=== PATIENT | male | born 1965 | race Caucasian/White ===

== ENCOUNTER 2020-05-14 07:38 | Day surgery (SDC) | payer OTHER ==
--- OUTSIDE RECORDS SUMMARY | 2020-05-14 07:41 | XMS REPORT ---
:1965 Author Organization [facility] Address [address] [place], [address] [place] [address] Care Team Providers Name Role Phone Chandler Oliver Unavailable [phone] PROBLEMS Type Condition ICD9-CM [id number] Onset Condition SNOMED Code Notes Code Code Dates Status Problem Mixed E78.2 Active 198694019 hyperlipidemia ALLERGIES No Known Allergies ENCOUNTERS from 1965 to 2020-04-03 Encounter Location Date Provider Diagnosis [facility] [address] [facility] [address] [place], [facility] [address] [facility] [place] [id number] in adult Z00.0 0 and Screening for c olon cancer Z12.11 IMMUNIZATIONS Vaccine Route Administration Date Status Flucelvax - single dose syringe Unknown Mar 01, 2020 Administered SOCIAL HISTORY Tobacco Use: Social History Observation Description Date Details (start date - stop date) Never Smoker Sex Assigned At : Social History Observation Description Sex Assigned At Unknown Alcohol Screen Question Answer Notes Did you have a drink containing alcohol in the past Yes year? Points 1 Interpretation Negative How often did you have a drink containing alcohol in Monthly or less (1 point) the past year? Tobacco Use/Smoking Question Answer Notes Are you a never smoker REASON FOR REFERRAL No Information VITAL SIGNS Height 73 in Mar, Weight 196.5 lbs Mar, Temperature 97.3 degrees Fahrenheit Mar, BMI 25.92 kg/m2 Mar, Oximetry 99 % Mar, Respiratory Rate 16 /min Mar, Blood pressure systolic 129 mm Hg Mar, Blood pressure diastolic 80 mm Hg Mar, MEDICATIONS No Information PROCEDURES No Information RESULTS No Results REASON FOR VISIT Wellness MEDICAL (GENERAL) HISTORY Type Description Date Surgical History Gallbladder-pain 2017 Goals Section No Information Health Concerns No Information MEDICAL EQUIPMENT No Information MENTAL STATUS No Information FUNCTIONAL STATUS No Information ASSESSMENTS Encounter Date Diagnosis Assessment Notes Treatment Notes Treatm ent Clinical Notes Mar, Encounter for -- Wellness Exam wellness performed without examination in /Rectal adult (ICD-10 - examination Z00.00) (Asymptomatic) at this time. -- Encourage regular exercise and healthy diet. -- Take a baby aspirin daily: N/A. -- Consider having a flu vaccine every February or March. -- A complete exam is suggested yearly. -- Reminder to always use seat belts. -- It is suggested that lipids (fat and cholesterol) be checked on a yearly basis. The goal here would be to keep the bad cholesterol level (LDL) below 100. -- For colorectal cancer screening, return 1 stool hemoccult cards (test for hidden blood). The [place] [employer] also suggests colonoscopy at age 50 and then every 10 years. If interested in this test, we can refer you to a surgeon or c4 planner. -- It is a good idea to periodically check the scrotum/testis for any new lumps or changes. -- It is a good idea to have a complete eye exam a minimum of every 3 years. Increased eye pressure is called glaucoma and it is a common cause of blindness. -- Encouraged on making dental appointment every 6-12 months for check-up -- Every 10 years, it is patel to have a tuberculosis skin test (PPD) and D-Tetanus. -- Avoid excessive sun exposure. -- Apply sunscreen when outside. Check skin for any abnormal lesions/moles. Mar, Screening for colon cancer (ICD-10 - Z12.11) Mar, Other -- Medication reviewed and updated. -- Dietary and Lifestyle modifications addressed regarding diet, exercise and weight managemen t. -- Treatment options, risks and benefits, side effects reviewed in detail. -- Advised on signs/symptoms to monitor and when to call clinic and/or visit the nearest ER. Patient verbalized understanding and agreeable with plan. PLAN OF TREATMENT Treatment Notes Assessment Notes Clinical Notes Encounter for wellness examination -- Wellness Exam performe d without in adult /Rectal examination (Asymptomatic) at this time. -- Encourage regular exercise and healthy diet. -- Take a baby aspirin daily: N/A. -- Consider having a flu vaccine every February or March. -- A complete exam is suggested yearly. -- Reminder to always use seat belts. -- It is suggested that lipids (fat and cholesterol) be checked on a yearly basis. The goal here would be to keep the bad cholesterol level (LDL) below 100. -- For colorectal cancer screening, return 1 stool hemoccult cards (test for hidden blood). The [place] [employer] also suggests colonoscopy at age 50 and then every 10 years. If interested in this test, we can refer you to a surgeon or c4 planner. -- It is a good idea to periodically check the scrotum/testis for any new lumps or changes. -- It is a good idea to have a complete eye exam a minimum of every 3 years. Increased eye pressure is called glaucoma and it is a common cause of blindness. -- Encouraged on making dental appointment every 6-12 months for check-up -- Every 10 years, it is patel to have a tuberculosis skin test (PPD) and D-Tetanus. -- Avoid excessive sun exposure. -- Apply sunscreen when outside. Check skin for any abnormal lesions/moles. Treatment Notes Test Name Order Date Lipid Panel With LDL/HDL Ratio 2020-04-03 UA/M w/rflx Culture, Comp 2020-04-03 Prostate-Specific Ag, Serum 2020-04-03 Hemoglobin A1c 2020-04-03 Comp. 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
--- OUTSIDE RECORDS SUMMARY | 2020-05-14 07:41 | XMS REPORT | Continuity of Care Document ---
:1965 Author Organization [facility] t Address [address] [place] [address] Care Team Providers Name Role Phone Unavailable Unavailable Unavailable Problems This patient has no known problems. Allergies, Adverse Reactions, Alerts This patient has no known allergies or adverse reactions. Medications This patient has no known medications. Procedures This patient has no known procedures. Encounters Start End Encounter Admission Attending Care Care Encounter Source Date/Time Date/Time Type Type Clinicians Facility Department ID 2020-04-23 2020-04-23 Outpatient [facility] [id number] [facility]00 [facility] Out[facility] Clin[facility] 2020-04-03 2020-04-03 Outpatient [facility] [id number] [facility] Outpat[facility] ent Clinics 2019-05-03 2019-05-03 Outpatient Brazlea Albat [id number] [facility] [address] 16:00:00 16:00:00 [facility] Family Medicine Medicine Outpati ent Clinics Results This patient has no known results.
--- OUTSIDE RECORDS SUMMARY | 2020-05-14 07:41 | XMS REPORT ---
:1965 Author Organization [facility] Address [address] [place], [address] [place] [address] Care Team Providers Name Role Phone Chandler Oliver Unavailable [phone] PROBLEMS Type Condition ICD9-CM [id number] Onset Condition SNOMED Code Notes Code Code Dates Status Problem Mixed E78.2 Active [id number] hyperlipidemia ALLERGIES No Known Allergies ENCOUNTERS from 1965 to 2020-04-23 Encounter Location Date Provider Diagnosis [facility] [address] Apr, Chandler Oliver Mixed hyp erlipidemia [address] [place], E78.2 and [facility] [id number] tongue K14.1 IMMUNIZATIONS Vaccine Route Administration Date Status Flucelvax [...] No Information VITAL SIGNS Height 73 in Apr, Weight 191.5 lbs Apr, Temperature 96.5 degrees Fahrenheit Apr, BMI 25.26 kg/m2 Apr, MEDICATIONS No Information PROCEDURES No Information RESULTS No Results REASON FOR VISIT 3 wk lab f/u MEDICAL (GENERAL) HISTORY Type Description Date Surgical History Gallbladder-pain 2017 Goals Section No Information Health Concerns No Information MEDICAL EQUIPMENT No Information MENTAL STATUS No Information FUNCTIONAL STATUS No Information ASSESSMENTS Encounter Date Diagnosis Assessment Notes Treatment Notes Treatm ent Clinical Notes Apr, Mixed hyperlipidemia Diet controlled. (ICD-10 - E78.2) Education given. Repeat in 1 year. Hyperlipidemia Education: Hyperlipidemia refers to increased levels of lipids(fats) in the blood, including cholesterol and triglycerides. This can significantly increase your risk of developing coronary artery disease and peripheral artery disease. This can cause chest pain, heart attack, stroke, and fatigue. Treatment is recommended to decrease your risk. Treatment includes: lifestyle modification, low salt/low fat diet, exercise, tobacco cessation, low alcohol intake and sometimes medication. Blood tests (TC,TG, HDL, LDL) are utilized to determine treatment regimens. TC(Total cholesterol) should be below 200. TG(Total Triglycerides) should be below 150. HDL(Good cholesterol) should be above 40. LDL(Bad Cholesterol) should be below 130(if you have one risk factor) or less than 100( if you have more than one risk factor or have DM/CAD/PVD). Compliance with medication and treatment is vital. If you have questions, talk to your doctor. Apr, Geographical tongue Managed by dentist. (ICD-10 - K14.1) Proper hygiene. Education given. Discussed abortive meds for symptomatic relief. Apr, Other -- Medication reviewed and updated. -- Dietary and Lifestyle modifications addressed regarding diet, exercise and weight management. -- Treatment options, risks and benefits, side effects reviewed in detail. -- Advised on signs/symptoms to monitor and when to call clinic and/or visit the nearest ER. Patient verbalized understanding and agreeable with plan. PLAN OF TREATMENT Treatment Notes Assessment Notes Clinical Notes Mixed hyperlipidemia Diet controlled. Education given. Repea t in 1 year. Hyperlipidemia Education: Hyperlip idemia refers to increased levels of lipids(fat s) in the blood, including cholesterol and triglyc erides. This can significantly increase your ris k of developing coronary artery disease and p eripheral artery disease. This can cause chest khari n, heart attack, stroke, and fatigue. Treatment i s recommended to decrease your risk. Treat ment includes: lifestyle modification, low sa lt/low fat diet, exercise, tobacco cessation, l ow alcohol intake and sometimes medication. Blood tests (TC,TG, HDL, LDL) are utilized to determine treatment regimens. TC(Total cholesterol ) should be below 200. TG(Total Triglycerides) sh ould be below 150. HDL(Good cholesterol) should be above 40. LDL(Bad Cholesterol) should be below 130(if you have one risk factor) or less than 1 00( if you have more than one risk factor or brush ve DM/CAD/PVD). Compliance with medication and treatment is vital. If you have question s, talk to your doctor. Geographical tongue Managed by dentist. Proper hygiene. Ed ucation given. Discussed abortive meds for symp tomatic relief. 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
[2020-05-14] MEDS ORDERED: Ringers Lactate 1,000 ML IV ONE (07:59)
[2020-05-14] MEDS ORDERED: LIDOCAINE 1% MPF 5 ML VIAL ONE (08:23)
[2020-05-14] MEDS ORDERED: propofoL 200 MG/20 ML VIAL IV ONE (08:23)
[2020-05-14 09:52] VITALS: BP 111/78; TEMP 97.3; O2SAT 97
== END 2020-05-14 09:30 | disposition home or self-care (01) ==
LOC: OR 07:38
PROVIDERS: ATTEND Surgery
PROC: 0DJD8ZZ Inspection of Lower Intestinal Tract, Via Natural or Artificial Opening Endoscopic (ICD-10-PCS; principal; 2020-05-14 08:30)
DX: Z12.11 Encounter for screening for malignant neoplasm of colon (principal); K64.4 Residual hemorrhoidal skin tags; K64.8 Other hemorrhoids; Z20.828 Contact with and (suspected) exposure to other viral communicable diseases
CPT/HCPCS: 45378; U0002; J2704; J7120